=== PATIENT | female | born 1965 | race Caucasian/White ===

== ENCOUNTER 2016-09-26 06:33 | Day surgery (SDC) | payer MEDICARE, MEDICAID ==
[~2016-09-26] VITALS: Ht 172.7 cm; Wt 92.6 kg
[2016-09-26] VITALS (10 sets, daily range): BP systolic 111–132; BP diastolic 69–86; PULSE 56–74; RESP 13–18; O2SAT 94–100
[2016-09-26] MEDS: Lactated Ringer's 1,000 ML IV SCH ×2 (06:30→08:50)
[~2016-09-26 06:33] MED LIST: BISA-67 PO; Bupivacaine Liposome 1.3% 20 mL Inj INFILTRATE ONE; CHOL100045 PO; CLOZ200T PO; CeFAZolin Inj 2 GM in IV Premix 1 EACH IV ONE; GLYCOLAX POWDER PO; IBUP800T28 PO; LEVO125T6 PO; LITH600C PO; LORA0.5T PO; RESPERIDONE PO
[2016-09-26] MEDS ORDERED: fentaNYL-PF 50 mCg/mL 2 mL Inj ONE (06:34)
--- NOTE | 2016-09-26 07:23 | PCM.HPANE ---
Patient Data Surgeon Admitting Provider: Attending Provider:Carlos Sood MD Primary Care Physician:Francesco Other Provider:Get Echols Anesthesia Reason for Visit Epigastric Hernia Ht/WT & BMI Height (Feet): 5 Height (Inches): 8 Weight (Kilograms): 92.6 Body Mass Index 30.00 Allergies Coded Allergies: No Known Allergies (Unverified , 09/25/16) Past Anesthesia History Anesthesia History: Denies:: Anesthesia Reactions, Fam Anesthesia Reaction, Fam Malignant Hypertherm, Malignant Hyperthermia Diabetes History Hx Diabetes?: No MRSA MRSA: No Medications Reported Medications [Resperidone] No Conflict Check2 Mg PO BID 09/25/16 Levothyroxine 125 Mcg [id number] Mcg PO DAILY For Thyroid Replacement Ref 0 09/25/16 Cholecalciferol (Vitamin D3) (Vitamin D)1,000 Unit Capsule1,000 Unit PO DAILY # 1 BOTTLE Ref 0 09/25/16 Lorazepam 0.5 Mg Tablet0.5-1 Mg PO BID PRN For Anxiety Ref 0 09/25/16 [place] Carbonate 600 Mg [id number] Mg PO HS 09/25/16 Ibuprofen 800 Mg [id number] Mg PO QID PRN For Pain Ref 0 09/25/16 Clozapine 200 Mg [id number] Mg PO BID Ref 0 09/25/16 Bisacodyl (Dulcolax)5 Mg Tablet.dr5 Mg PO DAILY PRN For Constipation Ref 0 09/25/16 [Glycolax Powder] No Conflict Check17 Gm PO DAILY 09/25/16 Discontinued Reported Medications Lorazepam-Expunged Drug, Do Not Renew! 0.5 Mg Tablet0.5-1 Mg PO BID Ref 0 08/18/13 risperiDONE-Expunged Drug, Do Not Renew! (RisperDAL-Expunged Drug, Do Not Renew! )2 Mg Tablet2 Mg PO BID #60 TAB Ref 0 08/18/13 [place] Carbonate-Expunged Drug, Do Not Renew 300 Mg Gdykyag460 Mg PO HS 08/18/13 Clozapine-Expunged Drug, Do Not Renew! 100 Mg [id number] Mg PO HS 08/18/13 Benztropine Mes-Expunged Drug, Do Not Renew! 1 Mg Tablet2 Mg PO HS Parkinson's Dose 1-2 mg Xtrapyramidal dose 1-4 mg 08/18/13 Cholecalciferol-Expunged Drug, Do Not Renew! (Vitamin D3-Expunged Drug, Do Not Renew!)2,000 Unit Tablet1,000 Unit PO DAILY 08/18/13 IBUPROFEN-Expunged Drug, Do Not Renew! 600 Mg [id number] Mg PO QID PRN PRN 08/18/13 [Reguloid Powder] No Conflict Check2 Tsp PO DAILY 08/18/13 [id number] Ethyl Esters-Expunged Drug, Do N (Lovaza-Expunged Drug, Do Not Renew!)1 Gm Cap1 Gm PO BID Ref 0 08/18/13 Levothyroxine-Expunged Drug, Do Not Renew! (Synthroid-Expunged Drug, Do Not Renew!)125 Mcg Tuqpcz090 Mcg PO DAILYAC #30 TAB Ref 0 0.125 MG = 125 MCG 08/18/13 Docusate Sod-Expunged Drug, Do Not Renew! 100 Mg [id number] Mg PO BID 08/18/13 Bisacodyl-Expunged Drug, Do Not Renew! 5 Mg Tablet.dr5 Mg PO DAILY PRN PRN For the relief of constipation. 08/18/13 History History of ENT Problems?: No Hx of Heart Problems?: No Cardiovascular History: Denies:: Heart Murmur Hypertension Hx of Respiratory Problem?: Yes Respiratory History: Denies:: Use of C-PAP Machine (snores) Hx Neurologic Problems?: No Hx of GI Problems?: Yes Other GI Pertinent History: INCARCERATED EPIGASTRIC HERNIA=CURRENT PROBLEM Hx of Problems?: No Female Hx: Positive for:: Problems with Breasts? (S/P RT BREAST BX,PARTIAL MASTECTOMY FOR DCIS) Denies:: Currently Skin History: Denies:: History Skin Disorders? Pressure Ulcers Hx Musculoskeletal Problems?: No Hx of Psycho/Social Problems?: Yes Hx Surgeries?: Yes (RT BREAST BX,RT PARTIAL MASTECTOMY) Hx Any Other Health Problems?: Yes Other History: Positive for:: Cancer (RT BREAST DCIS) Thyroid Disease Denies:: Endocrine Disease Hospitalization History Blood Transfusions: Denies:: Blood Transfusions Hx Diabetes: No Hx Alcohol Use: NoHx Substance Use: NoHave You Smoked inLast 12 mo: No Stop/Bang S-Snoring: Do You Snore Loudly: Yes T-Tired: feel tired, fatigued: No O-Obsered: Observed not breath: No P-Blood Pressure: treated: No B- Body Mass Index > 35 kg/m2: No A- Age over 50: Yes N- Neck Large Circumference: No G- Gender Male: No JONATHAN Total Score: 2 Risk Assessment Category Category 1A: Patient has history of documented sleep apnea, and HAS NOT received any narcotic, sedative or anesthesia administration during this stay. Category 1B: Patient has history of documented sleep apnea, and HAS received any narcotic , sedative or anesthesia administration during this stay Category 2: Patient has SUSPECTED Obstructive Sleep Apnea, and HAS received any narcotic , sedative or anesthesia administration during this stay. Category 3: Patient has SUSPECTED Obstructive Sleep Apnea and HAS NOT received narcotic, sedative or anesthesia administration during this stay. Category 4: Outpatient in Procedural Areas with known sleep apnea or who screen positive for High Risk via the STOP/BANG questionnaire. Exam Exam Vital Signs Vital Signs Date Time Temp Pulse Resp B/P Pulse Ox O2 Delivery O2 Flow Rate FiO2 09/26/16 06:49 36.0 74 13 130/86 96 Room Air General Appearance: Alert HEENT/AIRWAY: MP 3 Lungs: Clear to Auscultation Heart: Exam Unremarkable Meds/Labs/Diagnostics Admission Meds Current Medications Lactated Ringer's (Lr) 1,000 ml @ 120 mls/hr Q8H20M IV Last administered on t 06:30; Start 09/26/16 at 05:00; Stop 09/26/16 at 13:19 Plan Impression Patient chart reviewed, patient interviewed and anesthestic plan with risks, benefits, and alternatives discussed, and informed consent obtained. NPO Status: greater than 8 hours for solids and greater than 2 hours for water ASA Physical Status: ASA2 Mod Systemic Disease Anesthetic Support Modalities: [place] Scope, Hemodynamic Monitoring Anesthetic Plan: GA Bene/Risks/Altern/Consents: Yes HP Complete Prior to Induction: Yes EarlyMonty MD Sep 26, 2016 07:23
[2016-09-26] MEDS ORDERED: Bupivacaine Liposome 1.3% 20 mL Inj INFILTRATE ONE (08:44)
[2016-09-26] MEDS ORDERED: Lactated Ringer's 1,000 ML IV SCH (08:56)
[2016-09-26] MEDS ORDERED: Lactated Ringer's 500 ML IV PRN (08:56)
[2016-09-26] MEDS ORDERED: Ondansetron 2 mg/mL 2 mL Inj IVPUSH PRN (09:00)
[2016-09-26] MEDS ORDERED: MetoCLOpramide 5 mg/mL 2 mL Inj IVPUSH PRN (09:00)
[2016-09-26] MEDS ORDERED: Phenylephrine 10,000 mCg/mL Inj IVPUSH PRN (09:00)
[2016-09-26] MEDS ORDERED: Dexamethasone 4 mg/mL Inj IVPUSH PRN (09:00)
[2016-09-26] MEDS ORDERED: EPHEDrine Sulfate 50 mg/mL Inj IVPUSH PRN (09:00)
[2016-09-26] MEDS ORDERED: HYDROmorphone 1 mg/mL Inj IVPUSH PRN (09:00)
[2016-09-26] MEDS ORDERED: fentaNYL-PF 50 mCg/mL 2 mL Inj IVPUSH PRN (09:00)
[2016-09-26] MEDS ORDERED: oxyCODONE-Acetamin 5-325 mg Tablet PO PRN (09:20)
--- NOTE | 2016-09-26 09:20 | PCM.DISURG ---
Surgical Discharge Instruction Date of Service Sep 26, 2016 Dates of Hospitalization Date of Hospital Admission Providers Admitting Physician: Primary Care Physician: Francesco Attending Physician: Carlos Sood MD Discharge Diagnosis Discharge Diagnosis Epigastric hernia Diet Discharge Diet: No restrictions Activity Discharge Activity-General: No lifting >15 pounds for 2 weeks Dressing and Incisional Care Dressing Care: Allow Steri Stripes to fall off, Remove outer dressing after 24 hrs Hygiene: May shower after (24 hours) Follow Up Plan Follow Up Plan In the general surgery [place] postoperative clinic in 2-3 weeks Call your provider for: Fever (over 101.5), Vomiting, Discharge @ incision, pus discharge Carlos Sood MD Sep 26, 2016 09:20
--- NOTE | 2016-09-26 09:25 | PCM.SURGOP ---
Surgical Operative Report Date of Service: Sep 26, 2016 Pre Operative Diagnosis Incarcerated epigastric hernia Post Operative Diagnosis Same Procedure: Epigastric hernia repair with mesh Surgeon and Order Processing Specialist: Surgeon: Carlos Sood MD Assistants: Shannon Wyatt PA-C Indication for Procedure 50-year-old woman who has had a known epigastric hernia for several years, but it has recently become increasingly bothersome. It has not been reducible. After discussion of risks and benefits, she agreed to proceed with epigastric hernia repair with mesh. Findings: The fascial defect measured approximately 2 cm, and contained incarcerated omental fat. A repair was performed using the large Bard Ventralex mesh. Procedure Details After smooth induction of general endotracheal anesthesia, she was placed in the supine position with both arms out, and was prepped and draped in wide sterile fashion. A procedural pause was performed according to the SCOAP checklist, and all were found to be in agreement. A vertical midline incision was made above the umbilicus. Dissection was carried down through the superficial subcutaneous tissue until the hernia sac was encountered. The hernia sac was dissected free from the surrounding subcutaneous tissue down to the level of the fascia. The fascia was skeletonized. The hernia sac was opened, which contained incarcerated omental fat. This was reduced through the fascial defect. The fascial defect measured 2 cm in diameter. By palpating through the defect, there were no other apparent defects. A repair was then performed using the large Bard Ventralex mesh as an underlay. This was secured using 0 Nurolon transfacial sutures in 4 quadrants. The tails of the mesh were cut. The fascia was then closed transversely over the mesh using interrupted 0 Nurolon sutures. Liposomal bupivacaine was instilled around the fascial sutures and into the subcutaneous tissue. The subcutaneous tissue was reapproximated with interrupted 3-0 Vicryl sutures. The skin incision was closed with a running 4-0 Monocryl subcuticular stitch. Steri-Strips and sterile dressings were applied. At the end of the case all needle and sponge counts were correct 2. The patient was awakened from anesthesia without difficulty, and taken to the recovery room in satisfactory condition, having tolerated the procedure well. Complications There were no periprocedural complications identified. Surgical Specimen Removed: No Specimen sent to Pathology: Not applicable Anesthetic Plan: GA Grafts, Implants: Implants-See Implant Record Output, Estimated Blood Loss: 10 Blood Administration during sharma: No Drains: None Catheters: None copies to: MD Indigo Davila Joshua D MD Sep 26, 2016 09:25
--- NOTE | 2016-09-26 10:31 | PCM.ANEP1 ---
Post Anesthesia Phase 1 PACU Phase 1 Assessment Date of Service: Sep 26, 2016 Vital Signs Vital Signs Date Time Temp Pulse Resp B/P Pulse Ox O2 Delivery O2 Flow Rate FiO2 09/26/16 09:50 62 18 119/77 100 Room Air 09/26/16 09:45 66 15 117/74 100 Simple Mask 10 09/26/16 09:40 65 17 125/81 100 Simple Mask 10 09/26/16 09:35 37.0 66 17 132/77 100 Simple Mask 10 09/26/16 07:36 36.0 74 13 130/86 96 Room Air 09/26/16 06:49 36.0 74 13 130/86 96 Room Air Anesthetic Administered: GA Level of Alertness: Awake, talking PATHAK's with Equal Strength: Yes Pain: No Nausea or Vomiting: No Cardiovascular Function and Hy: Yes Oxygen Delivery: Simple Mask Lungs: Clear to Auscultation Dermatome Level: Full Sensation Complications: No Follow up Care: No Patient Instructions Provided: Yes Monty Pemberton MD Sep 26, 2016 10:31
== END 2016-09-26 23:59 | disposition home or self-care (01) ==
LOC: SAS 06:33
PROVIDERS: ATTEND Student in an Organized Health Care Education/Training Program
DX: K43.6 Other and unspecified ventral hernia with obstruction, without gangrene (principal); E03.9 Hypothyroidism, unspecified; F20.9 Schizophrenia, unspecified; Z85.3 Personal history of malignant neoplasm of breast
CPT/HCPCS: 49572; C1781; J0690; J3010; J7120